=== PATIENT | female | born 1950 | race Two or more races ===

== ENCOUNTER 2019-11-06 12:00 | Outpatient (CLI) | payer MEDICARE, OTHER, MEDICAID | END 2019-11-06 23:59 | disposition home health service (06) | LOC: WOU 12:00 | PROVIDERS: ATTEND Podiatrist Foot & Ankle Surgery | DX: L97.312 Non-pressure chronic ulcer of right ankle with fat layer exposed (principal); S82.871G Displaced pilon fracture of right tibia, subsequent encounter for closed fracture with delayed healing; X58.XXXD Exposure to other specified factors, subsequent encounter; R60.0 Localized edema; Z96.652 Presence of left artificial knee joint | CPT/HCPCS: 11042; 87070; 87075; 87077; 87186; A6207; A6210 ==

== ENCOUNTER 2019-11-17 08:30 | Outpatient (CLI) | payer MEDICARE, OTHER | END 2019-11-17 23:59 | disposition home health service (06) | LOC: WOU 08:30 | PROVIDERS: ATTEND Podiatrist Foot & Ankle Surgery | DX: L97.312 Non-pressure chronic ulcer of right ankle with fat layer exposed (principal); S82.871G Displaced pilon fracture of right tibia, subsequent encounter for closed fracture with delayed healing; L03.115 Cellulitis of right lower limb; B96.89 Other specified bacterial agents as the cause of diseases classified elsewhere; R60.0 Localized edema; S80.821A Blister (nonthermal), right lower leg, initial encounter; X58.XXXA Exposure to other specified factors, initial encounter; Y92.89 Other specified places as the place of occurrence of the external cause | CPT/HCPCS: 11042; A6209 ×2; A6210 ==

== ENCOUNTER 2019-11-24 08:30 | Outpatient (CLI) | payer MEDICARE, OTHER | END 2019-11-24 23:59 | disposition home health service (06) | LOC: WOU 08:30 | PROVIDERS: ATTEND Podiatrist Foot & Ankle Surgery | DX: L97.312 Non-pressure chronic ulcer of right ankle with fat layer exposed (principal); S82.871G Displaced pilon fracture of right tibia, subsequent encounter for closed fracture with delayed healing; X58.XXXD Exposure to other specified factors, subsequent encounter; R60.0 Localized edema; L03.115 Cellulitis of right lower limb | CPT/HCPCS: 11042; A6210 ==

== ENCOUNTER 2019-12-01 08:24 | Outpatient (CLI) | payer MEDICARE, OTHER | END 2019-12-01 23:55 | disposition home health service (06) | LOC: WOU 08:24 | PROVIDERS: ATTEND Podiatrist Foot & Ankle Surgery | DX: L97.312 Non-pressure chronic ulcer of right ankle with fat layer exposed (principal); S82.871G Displaced pilon fracture of right tibia, subsequent encounter for closed fracture with delayed healing; R60.0 Localized edema; X58.XXXD Exposure to other specified factors, subsequent encounter | CPT/HCPCS: 11042 ==

== ENCOUNTER 2019-12-08 08:45 | Outpatient (CLI) | payer MEDICARE, OTHER | END 2019-12-08 23:59 | disposition home health service (06) | LOC: WOU 08:45 | PROVIDERS: ATTEND Podiatrist Foot & Ankle Surgery | DX: T81.89XA Other complications of procedures, not elsewhere classified, initial encounter (principal); S82.201G Unspecified fracture of shaft of right tibia, subsequent encounter for closed fracture with delayed healing; X58.XXXD Exposure to other specified factors, subsequent encounter; Z96.652 Presence of left artificial knee joint | CPT/HCPCS: 11042 ==

== ENCOUNTER 2019-12-15 08:27 | Outpatient (CLI) | payer MEDICARE, OTHER | END 2019-12-15 23:59 | disposition home health service (06) | LOC: WOU 08:27 | PROVIDERS: ATTEND Podiatrist Foot & Ankle Surgery | DX: L97.312 Non-pressure chronic ulcer of right ankle with fat layer exposed (principal); S82.871G Displaced pilon fracture of right tibia, subsequent encounter for closed fracture with delayed healing; X58.XXXD Exposure to other specified factors, subsequent encounter; R60.0 Localized edema; Z98.890 Other specified postprocedural states | CPT/HCPCS: 11042 ==

== ENCOUNTER 2019-12-22 08:00 | Outpatient (CLI) | payer MEDICARE, OTHER | END 2019-12-22 23:59 | disposition home health service (06) | LOC: WOU 08:00 | PROVIDERS: ATTEND Podiatrist Foot & Ankle Surgery | DX: L97.312 Non-pressure chronic ulcer of right ankle with fat layer exposed (principal); S82.871G Displaced pilon fracture of right tibia, subsequent encounter for closed fracture with delayed healing; X58.XXXD Exposure to other specified factors, subsequent encounter; R60.0 Localized edema | CPT/HCPCS: 15271; Q4196 ==

== ENCOUNTER 2019-12-29 08:30 | Outpatient (CLI) | payer MEDICARE, OTHER | END 2019-12-29 23:59 | disposition home health service (06) | LOC: WOU 08:30 | PROVIDERS: ATTEND Podiatrist Foot & Ankle Surgery | DX: L97.312 Non-pressure chronic ulcer of right ankle with fat layer exposed (principal); S82.871G Displaced pilon fracture of right tibia, subsequent encounter for closed fracture with delayed healing; X58.XXXD Exposure to other specified factors, subsequent encounter; R60.0 Localized edema; L84 Corns and callosities | CPT/HCPCS: 15271; Q4196 ×2 ==

== ENCOUNTER 2020-01-05 08:30 | Outpatient (CLI) | payer MEDICARE, OTHER | END 2020-01-05 23:59 | disposition home health service (06) | LOC: WOU 08:30 | PROVIDERS: ATTEND Podiatrist Foot & Ankle Surgery | DX: L97.312 Non-pressure chronic ulcer of right ankle with fat layer exposed (principal); S82.871G Displaced pilon fracture of right tibia, subsequent encounter for closed fracture with delayed healing; X58.XXXD Exposure to other specified factors, subsequent encounter; R60.0 Localized edema; S80.821A Blister (nonthermal), right lower leg, initial encounter; X58.XXXA Exposure to other specified factors, initial encounter; Y92.89 Other specified places as the place of occurrence of the external cause | CPT/HCPCS: G0463 ==